=== PATIENT | female | born 2000 ===

== ENCOUNTER 2020-02-25 13:54 | Outpatient (REF) | payer BC, SELFPAY ==
[2020-02-29 12:55] LABS: SARS-CoV-2 RNA Undetected (Undetected); SARS-CoV-2 Specimen Source Nasal
== END 2020-02-25 14:14 ==
LOC: NCHCN 13:54
PROVIDERS: Visit Provider Nurse Practitioner Family
DX: Z20.828 Contact with and (suspected) exposure to other viral communicable diseases (principal)
CPT/HCPCS: U0003

== ENCOUNTER 2020-05-19 15:48 | Outpatient (REF) | payer BC, SELFPAY ==
[2020-05-20 13:27] LABS: Calculated LDL 158 mg/dL (<100); Cholesterol 246 mg/dL (<200); HDL Cholesterol 76 mg/dL (40-60); Triglyceride 64 mg/dL (<150)
[2020-05-20 13:28] LABS: Hemoglobin A1C 5.4 % (<5.7)
[2020-05-23 12:08] LABS: Testosterone, Total 34 ng/dL (8-60)
== END 2020-05-19 16:08 ==
LOC: NCHCN 15:48
PROVIDERS: Visit Provider Nurse Practitioner Family
DX: N97.9 Female infertility, unspecified (principal); R10.2 Pelvic and perineal pain; N92.0 Excessive and frequent menstruation with regular cycle; R73.03 Prediabetes; E66.9 Obesity, unspecified
CPT/HCPCS: 80061; 84403; 83036; 84443

== ENCOUNTER 2023-02-21 14:24 | Outpatient (REF) | payer BC, SELFPAY ==
--- NOTE | 2023-02-21 11:00 | PAPFT_PTH ---
PATIENT: Shari Putnam LOC: [facility]#:[id number] AGE/SX: 23/F ROOM: RE02/21/[address]: Leonor Raymond : 2000 BED: DIS: 02/21/2023 SPEC #: [id number] RECD: 02/21/23 17:39 STATUS: HUMBLE REQ #: [id number] PRESTON: 02/21/23 11:[address]: Leonor Abraham DEPT: [facility] Cytology RECD BY: Sarah Porras ENTERED: 02/21/23 17:39 SP TYPE: PAPFT OT DR: Unknown,Unknown Tissues: 1 - CX/ENDOCX FOR PAP SMEARS Procedures: PAP THIN PREP/[facility] Screening Comments: [id number]
--- OUTSIDE RECORDS SUMMARY | 2023-02-21 14:26 | XMS_ITS | Continuity of Care Document ---
Author Name Unknown Organization [facility] Address [address] [place] [address] Encounter [facility]_[place] Date(s): 02/23/22 - 02/23/[address] [address] Discharge Disposition: Home or Self Care Attending Physician: Ridge Storey Admitting Physician: Ridge Storey Referring Physician: Ridge Storey Results Laboratory List Name Date Beta hCG Quantitative 02/23/22 Most recent to oldest [Reference Range]: 1 Beta hCG Qnt [1-6 mIntlUnit/mL] 144 mInt lUnit/mL *HI* (02/23/22 8:14 AM) Social History Social History Type Response Sex Female
--- OUTSIDE RECORDS SUMMARY | 2023-02-21 14:26 | XMS_ITS | Continuity of Care Document ---
Author Name Unknown Organization [facility] Address [address] [place] [address] Encounter NCTY_[place] Date(s): 02/27/22 - 02/27/22 [facility] [address] [place] [address] Discharge Disposition: Home or Self Care Attending Physician: Nathaly Corrigan Admitting Physician: Nathaly Corrigan Referring Physician: Nathaly Corrigan Results Laboratory List Name Date Beta hCG Quantitative 02/27/22 Most recent to oldest [Reference Range]: 1 Beta hCG Qnt [1-6 mIntlUnit/mL] 289 mInt lUnit/mL *HI* (02/27/22 8:15 AM) Social History Social History Type Response Sex Female
--- OUTSIDE RECORDS SUMMARY | 2023-02-21 14:26 | XMS_ITS | Continuity of Care Document ---
Author Name Unknown Organization [facility] Address [address] [place] [address] Care Team Providers Care Sketch Artist Name Role Phone Leonor Abraham Primary Care Physician Encounter NCTY_[place] Date(s): 06/24/22 - 06/24/[address] [address] Discharge Disposition: Home or Self Care Attending Physician: Unavailable, Physician Admitting Physician: Unavailable, Physician Referring Physician: Unavailable, Physician Results Laboratory List Name Date Protein Level 24 Hour Urine 06/24/22 Most recent to oldest [Reference Range]: 1 U24 Protein [0-149 mg/24hr] 134 mg/24hr (06/24/22 8:16 AM) TV Protein 1520 mL *NA* (06/24/22 8:16 AM) Social History Social History Type Response Sex Female Patient Care team information Care Team Personnel Name: Leonor Abraham FOURDRINIER MACHINE OPERATOR-C Position: No Access Member Role: Primary Care Physician Address: Address: [address] [address]- Care Team Related Persons Name: ANIA VALDEZ Address: Home [address] [place], [place] [id number]
--- OUTSIDE RECORDS SUMMARY | 2023-02-21 14:26 | XMS_ITS | Continuity of Care Document ---
Author Name Unknown Organization [facility] Address [address] [place] [address] [facility] 02/[facility]/22 - 02/10/22 [facility] [address] [place] [address] Discharge Disposition: Home or Self Care Attending Physician: Ridge Storey Admitting Physician: Ridge Storey Referring Physician: Ridge Storey Results Laboratory List Name Date CBC w/ Diff 02/10/22 Comprehensive Metabolic Panel 02/10/22 Automated Diff 02/10/22 Most recent to oldest [Reference Range]: 1 WBC [5.0-10.0 x10^3/mcL] 12.2 x10^3/mcL *HI* (02/10/22 11:00 AM) RBC [4.1-5.3 x10^6/mcL] 4.9 x10^6/mcL (02/10/22 11:00 AM) Neutro Auto [40.0-75.0 %] 71.5 % (02/10/22 11:00 AM) Lymph Auto [20.0-50.0 %] 21.7 % (02/10/22 11:00 AM) [place] Auto [2.0-15.0 %] 6.1 % (02/10/22 11:00 AM) Basophil Auto [0.0-1.0 %] 0.2 % (02/10/22 11:00 AM) BUN [7-18 mg/dL] 7 mg/dL (02/10/22 11:00 AM) Glucose Level [74-106 mg/dL] 110 mg/dL *HI* (02/10/22 11:00 AM) Potassium Level [3.5-5.1 mmol/L] 3.5 mmo l/L (02/10/22 11:00 AM) MCV [80.0-103.0 fL] 83.1 fL (02/10/2200 AM) AST [15-37 unit/L] 24 unit/L (02/10/2200 AM) ALT [16-63 unit/L] 49 unit/L (02/10/22:00 AM) MCHC [31.0-35.0 g/dL] 32.8 g/dL (02/10/22:00 AM) Sodium Level [136-145 mmol/L] 137 mmol/L (02/10/22:00 AM) Hct [37.0-47.0 %] 40.8 % (02/10/2200 AM) Calcium Level [8.5-10.1 mg/dL] 9.3 mg/dL (02/10/2200 AM) Albumin Level [3.4-5.0 g/dL] 3.6 g/dL (02/10/2200 AM) Protein Total [6.4-8.2 g/dL] 7.6 g/dL (02/10/22:00 AM) MCH [26.0-32.0 pg] 27.3 pg (02/10/22:00 AM) Neutro Absolute 8.7 x10^3/mcL *NA* (02/10/22:00 AM) Bilirubin Total [0.2-1.0 mg/dL] 0.7 mg/d L (02/10/22:00 AM) Hgb [12.0-16.0 g/dL] 13.4 g/dL (02/10/22:00 AM) Alk Phos [46-146 unit/L] 76 unit/L (02/10/22:00 AM) Platelets [130-450 x10^3/mcL] 284 x10^3/ mcL (02/10/22:00 AM) CO2 [21-32 mmol/L] 21 mmol/L (02/10/22:00 AM) eGFR Non-AA [>=60] 124 (02/10/22 11:00 AM) eGFR AA [>=60] 124 (10/12/22 11:00 AM) Chloride Level [98-107 mmol/L] 104 mmol/ L (02/10/22 11:00 AM) RDW-CV [11.7-17.0 %] 13.0 % (02/10/22 11:00 AM) Imm Gran Auto [0.0-0.9 %] 0.3 % (02/10/22 11:00 AM) Creatinine Level [0.55-1.02 mg/dL] 0.69 mg/dL (02/10/22 11:00 AM) Anion Gap [8-16 mmol/L] 13 mmol/L (02/10/22 11:00 AM) Eos, Auto [1.0-6.0 %] 0.2 % *LOW* (02/10/22 11:00 AM) Social History Social History Type Response Sex Female
--- OUTSIDE RECORDS SUMMARY | 2023-02-21 14:26 | XMS_ITS | Continuity of Care Document ---
Author Name Unknown Organization [facility] Address [address] [place] [address] Encounter [facility] Date(s): 02/12/22 - 02/12/22 [facility] [address] [place] [address] Discharge Disposition: Home or Self Care Attending Physician: Nathaly Corrigan Admitting Physician: Nathaly Corrigan Referring Physician: Nathaly Corrigan Results Laboratory List Name Date CBC w/ Diff 02/12/22 Comprehensive Metabolic Panel 02/12/22 Automated Diff 02/12/22 Most recent to oldest [Reference Range]: 1 WBC [5.0-10.0 x10^3/mcL] 8.6 x10^3/mcL (02/12/22 11:20 AM) RBC [4.1-5.3 x10^6/mcL] 4.8 x10^6/mcL (02/12/22 11:20 AM) Neutro Auto [40.0-75.0 %] 63.4 % (02/12/22 11:20 AM) Lymph Auto [20.0-50.0 %] 28.0 % (02/12/22 11:20 AM) Citrus Auto [2.0-15.0 %] 7.9 % (02/12/22 11:20 AM) Basophil Auto [0.0-1.0 %] 0.3 % (02/12/22 11:20 AM) BUN [7-18 mg/dL] 7 mg/dL (02/12/22 11:20 AM) Glucose Level [74-106 mg/dL] 114 mg/dL *HI* (02/12/22 11:20 AM) Potassium Level [3.5-5.1 mmol/L] 3.7 mmo l/L (02/12/22 AM) MCV [80.0-103.0 fL] 83.7 fL (02/12/22 AM) AST [15-37 unit/L] 34 unit/L (02/12/22 AM) ALT [16-63 unit/L] 65 unit/L *HI* (02/12/22 AM) MCHC [31.0-35.0 g/dL] 33.2 g/dL (02/12/22 AM) Sodium Level [136-145 mmol/L] 137 mmol/L (02/12/22 AM) Hct [37.0-47.0 %] 40.1 % (02/12/22 AM) Calcium Level [8.5-10.1 mg/dL] 9.2 mg/dL (02/12/22 AM) Albumin Level [3.4-5.0 g/dL] 3.3 g/dL *LOW* (02/12/22 AM) Protein Total [6.4-8.2 g/dL] 7.2 g/dL (02/12/22 AM) MCH [26.0-32.0 pg] 27.8 pg (02/12/22 AM) Neutro Absolute 5.5 x10^3/mcL *NA* (02/12/22 AM) Bilirubin Total [0.2-1.0 mg/dL] 0.5 mg/d L (02/12/22 AM) Hgb [12.0-16.0 g/dL] 13.3 g/dL (02/12/22 AM) Alk Phos [46-146 unit/L] 73 unit/L (02/12/22 AM) Platelets [130-450 x10^3/mcL] 287 x10^3/ mcL (02/12/22 AM) CO2 [21-32 mmol/L] 27 mmol/L (02/12/22 AM) eGFR Non-AA [>=60] 94 (02/12/22 AM) eGFR AA [>=60] 94 (02/12/22 11:20 AM) Chloride Level [98-107 mmol/L] 103 mmol/ L (02/12/22 11:20 AM) RDW-CV [11.7-17.0 %] 13.1 % (02/12/22 11:20 AM) Imm Gran Auto [0.0-0.9 %] 0.2 % (02/12/22 11:20 AM) Creatinine Level [0.55-1.02 mg/dL] 0.88 mg/dL (02/12/22 11:20 AM) Anion Gap [8-16 mmol/L] 9 mmol/L (02/12/22 11:20 AM) Eos, Auto [1.0-6.0 %] 0.2 % *LOW* (02/12/22 11:20 AM) Social History Social History Type Response Sex Female
--- OUTSIDE RECORDS SUMMARY | 2023-02-21 14:26 | XMS_ITS | Continuity of Care Document ---
Author Name Unknown Organization [facility] Address [address] [place] [address] Care Team Providers Care Fountain Brush Assembler Name Role Phone Leonor Abraham Primary Care Physician [phone] Encounter [facility]_[place] Date(s): 09/01/22 - 09/01/[address] [address] Discharge Disposition: Home or Self Care Attending Physician: Esther Russ CNM Admitting Physician: Esther Russ CNM Referring Physician: Esther Russ CNM Results Laboratory List Name Date .GTT 3 HR OB 100gm 09/01/22 .GTT 2 HR OB 100gm 09/01/22 .GTT 1 HR OB 100gm 09/01/22 .Glucose Fasting 09/01/22 Most recent to oldest [Reference Range]: 1 Gluc Fasting [74-106 mg/dL] 103 mg/dL (09/01/22 8:13 AM) Gluc 1 Hr OB 100gm [70-140 mg/dL] 153 mg /dL *HI* (09/01/22 9:09 AM) Gluc 2 Hr OB 100gm [70-140 mg/dL] 152 mg /dL *HI* (09/01/22 10:12 AM) Gluc 3 Hr OB 100gm [70-140 mg/dL] 136 mg /dL (09/01/22 11:10 AM) Social History Social History Type Response Sex Female Patient Care team information Care Team Personnel Name: Leonor Abraham ENERGY PROFESSIONAL-C Position: No Access Member Role: Informed Provider Address: Address: [facility] [address] [place] [address]- Care Team Related Persons Name: ANIA VALDEZ Address: Home [address] [place], [place] [id number] [place]
--- OUTSIDE RECORDS SUMMARY | 2023-02-21 14:26 | XMS_ITS | Continuity of Care Document ---
Author Name Unknown Organization [facility] Address [address] [place] [address] Care Team Providers Care Drill Doctor Name Role Phone Leonor Abraham Primary Care Physician Encounter [facility]_[place] Date(s): 08/16/22 - 08/16/[address] [address] Discharge Disposition: Home or Self Care Attending Physician: Mayda Middleton CNM SWITCHING OPERATOR Admitting Physician: Mayda Middleton CNM SWITCHING OPERATOR Referring Physician: Mayda Middleton CNM SWITCHING OPERATOR Results Laboratory List Name Date CBC w/ Diff 08/16/22 Glucose Tolerance 1 Hr - 50gm 08/16/22 Hepatitis C Ab w/Rflx to HCV RNA PCR [facility] 08/16/22 Automated Diff 08/16/22 Most recent to oldest [Reference Range]: 1 WBC [5.0-10.0 x10^3/mcL] 8.4 x10^3/mcL (08/16/22 10:20 AM) RBC [4.1-5.3 x10^6/mcL] 4.2 x10^6/mcL (08/16/22 10:20 AM) Neutro Auto [40.0-75.0 %] 71.3 % (08/16/22 10:20 AM) Lymph Auto [20.0-50.0 %] 21.4 % (08/16/22 10:20 AM) [place] Auto [2.0-15.0 %] 6.1 % (08/16/22 10:20 AM) Basophil Auto [0.0-1.0 %] 0.2 % (08/16/22 10:20 AM) MCV [80.0-96.0] 83.7 (08/16/22 10:20 AM) MCHC [31.0-35.0 g/dL] 33.2 g/dL (08/16/22 10:20 AM) Hct [37.0-47.0 %] 35.5 % *LOW* (08/16/22 10:20 AM) MCH [26.0-32.0 pg] 27.8 pg (08/16/22 10:20 AM) Neutro Absolute 6.0 x10^3/mcL *NA* (08/16/22 10:20 AM) Hgb [12.0-16.0 g/dL] 11.8 g/dL *LOW* (08/16/22 10:20 AM) Platelets [130-450 x10^3/mcL] 287 x10^3/ mcL (08/16/22 10:20 AM) RDW-CV [11.7-17.0 %] 13.6 % (08/16/22 10:20 AM) Imm Gran Auto [0.0-0.9 %] 0.5 % (08/16/22 10:20 AM) Gluc 1 Hr 50gm [70-140 mg/dL] 143 mg/dL *HI* (08/16/22 10:20 AM) Hep C Antibody [facility] [Negative] Negative 1 *NA* (08/16/22 10:20 AM) Eos, Auto [1.0-6.0 %] 0.5 % *LOW* (08/16/22 10:20 AM) 1Result Comment: Test performed or referred by The [address] [id number] Social History Social History Type Response Sex Female Patient Care team information Care Team Personnel Name: Leonor Abraham TUBE MACHINE OPERATOR-C Position: No Access Member Role: Primary Care Physician Address: Address: [address] [address]- Care Team Related Persons Name: ANIA VALDEZ Address: Home [address] [place] [id number]
--- OUTSIDE RECORDS SUMMARY | 2023-02-21 14:26 | XMS_ITS | Continuity of Care Document ---
Author Name Unknown Organization [facility] Address [address] [place] [address] Encounter [facility]_[place] Date(s): 02/25/22 - 02/25/22 [facility] [address] [place] [address] Discharge Disposition: Home or Self Care Attending Physician: Ridge Storey Admitting Physician: Ridge Storey Referring Physician: Ridge Storey Results Laboratory List Name Date Beta hCG Quantitative 02/25/22 Most recent to oldest [Reference Range]: 1 Beta hCG Qnt [1-6 mIntlUnit/mL] 232 mInt lUnit/mL *HI* (02/25/22 8:11 AM) Social History Social History Type Response Sex Female
--- OUTSIDE RECORDS SUMMARY | 2023-02-21 14:26 | XMS_ITS | Continuity of Care Document ---
Author Name Unknown Organization [facility] Address [address] [place] [address] Care Team Providers Care Donation Worker Name Role Phone Leonor Abraham Primary Care Physician Encounter [facility] Date(s): 05/12/22 - 05/12/[address] [address] Discharge Disposition: Home or Self Care Attending Physician: Kenzie Steward CNM Admitting Physician: Kenzie Steward CNM Referring Physician: Kenzie Steward CNM Results Laboratory List Name Date Glucose Tolerance 1 Hr - 50gm 05/12/22 Most recent to oldest [Reference Range]: 1 Gluc 1 Hr 50gm [70-140 mg/dL] 120 mg/dL (05/12/22 10:14 AM) Social History Social History Type Response Sex Female Patient Care team information Personnel Name: Leonor AbrahamP-C Address: Address: [address] [address]
== END 2023-02-21 14:25 | disposition home or self-care (01) ==
LOC: NCHCN 14:24
PROVIDERS: Visit Provider Nurse Practitioner Family
DX: Z12.4 Encounter for screening for malignant neoplasm of cervix (principal)
CPT/HCPCS: 88142

== ENCOUNTER 2024-01-30 18:10 | Outpatient (REF) | payer BC, SELFPAY ==
[2024-01-30 21:42] LABS: Hemoglobin A1C 5.6 % (<5.7)
[2024-01-30 21:46] LABS: Calculated LDL 147 mg/dL (<100); Cholesterol 250 mg/dL (<200); HDL Cholesterol 64 mg/dL (40-60); TSH 0.97 uIU/Ml (0.36-3.74); Triglyceride 198 mg/dL (<150)
== END 2024-01-30 18:11 | disposition home or self-care (01) ==
LOC: NCHCN 18:10
PROVIDERS: Visit Provider Nurse Practitioner Family
DX: E78.5 Hyperlipidemia, unspecified (principal); E66.9 Obesity, unspecified; R73.03 Prediabetes
CPT/HCPCS: 80061; 83036; 84443